=== PATIENT | male | born 1990 | race Caucasian/White ===

== ENCOUNTER 2024-02-27 08:27 | Emergency (ER) | payer BC ==
[~2024-02-27] VITALS: Ht 180.3 cm; Wt 94.0 kg
[2024-02-27 08:31] VITALS: O2SAT 100
[2024-02-27 09:50] VITALS: BP 116/64; PULSE 78; RESP 16; TEMP 36.78072; O2SAT 100
== END 2024-02-27 09:53 | disposition home or self-care (01) ==
LOC: ER 08:46
DX: S99.921A Unspecified injury of right foot, initial encounter (principal); X58.XXXA Exposure to other specified factors, initial encounter; Y93.89 Activity, other specified; Y92.89 Other specified places as the place of occurrence of the external cause; Y99.8 Other external cause status
CPT/HCPCS: 73620; 99283